=== PATIENT | female | born 1945 | race Caucasian/White ===

== ENCOUNTER 2018-06-23 10:11 | Inpatient (IN) | payer OTHER ==
--- OUTSIDE RECORDS SUMMARY | 2018-06-23 10:16 | XMS REPORT ---
:1945 [facility] Address [address] [place] [address] Dr. Ram[address]rez [address] [place] [address] Care Team Providers Name Role Phone Unavailable Unavailable Unavailable Problems This patient has no known problems. Allergies, Adverse Reactions, Alerts This patient has no known allergies or adverse reactions. Medications This patient has no known medications.
[2018-06-23] MEDS ORDERED: FENTANYL CITR 100 MCG/2 ML ONE ×2 (10:37→13:12)
[2018-06-23 11:20] LABS: Absolute Lymphocytes (CBC) 1.7 K/uL (0.7-4.9); Absolute Monocytes 0.4 K/uL (0.1-1.3); Absolute Neutrophil 3.1 K/uL (1.8-8.0); Basophils % 0.3 % (0-1.3); Eosinophils % 1.2 % (0-4.4); Hematocrit 41.6 % (36.0-45.0); Lymphocytes % 33.2 % (15.3-44.8); MPV 8.9 fL (7.6-11.3); Monocytes % 6.8 % (3.3-12.3); RBC Red Blood Cell Count 4.49 M/uL (3.86-4.86)
[2018-06-23 11:42] LABS: BUN Blood Urea Nitrogen 16 mg/dL (7-18); Bicarbonate 26 mmol/L (21-32); Creatine Phosphokinase 56 U/L (26-192); Glucose Level 211 mg/dL (74-106); Potassium 3.7 mmol/L (3.5-5.1); Sodium Level 139 mmol/L (136-145); Troponin (Emerg Dept Use Only) < 0.02 ng/mL (0.0-0.045)
--- NOTE | 2018-06-23 11:47 | EKG ---
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
--- NOTE | 2018-06-23 11:50 | RAD REPORT ---
EXAM DESCRIPTION: [place] Single View06/23/2018 11:42 am CLINICAL HISTORY: Chest pain COMPARISON: 2009 FINDINGS: The lungs appear clear of acute infiltrate. The heart is normal size IMPRESSION: No acute abnormalities displayed
--- NOTE | 2018-06-23 11:53 | RAD REPORT ---
EXAM DESCRIPTION: RAD - Pelvis - 06/23/2018 11:42 am CLINICAL HISTORY: Pelvic pain status post injury FINDINGS: Subcapital right femoral fracture. Marked displacement of fracture fragments and angulatio n present at the fracture site. No dislocation
--- NOTE | 2018-06-23 11:53 | RAD REPORT ---
EXAM DESCRIPTION: RAD - Hip Right 2 View - 06/23/2018 11:42 am CLINICAL HISTORY: Right hip pain FINDINGS: Subcapital right femoral fracture. Marked displacement of fracture fragments and angulatio n present at the fracture site. No dislocation
[2018-06-23] MEDS ORDERED: DIAZEPAM 10 MG/2 ML INJ SYRINGE ONE ×2 (11:56→11:57)
--- NOTE | 2018-06-23 12:09 | EDPHYS ---
Physician Documentation [facility] Name: Anjel Stapleton Age: 72 yrs Sex: Female : 1945 Arrival Date: 06/23/2018 Time: 10:12 Bed 23 Private MD: ED Physician Aldair Vargas HPI: 06/23 10:33 This 72 yrs old Female presents to ER via EMS with complaints of Fall Injury, snw Hip Pain. 10:33 Details of fall: The patient fell from an upright position, while standing. Onset: The snw symptoms/episode began/occurred suddenly, just prior to arrival. Associated injuries: The patient sustained right hip, decreased range of motion, painful injury. Severity of symptoms: At their worst the symptoms were severe. The patient has not experienced similar symptoms in the past. It is unknown whether or not the patient has recently seen a physician, See Dr. Santos. pt fell over parking lot curb and landed on right hip. no loc. Historical: - Allergies: 10:20 PENICILLINS; aj - PSHx: 10:20 ; Appendectomy; aj - Immunization history: Last tetanus immunization: unknown. - Social history:: Smoking status: Patient/guardian denies using tobacco. - Ebola Screening: : Patient negative for fever greater than or equal to 101.5 degrees Fahrenheit, and additional compatible Ebola Virus Disease symptoms Patient denies exposure to infectious person Patient denies travel to an Ebola-affected area in the 21 days before illness onset No symptoms or risks identified at this time. ROS: 10:31 Constitutional: Negative for fever, chills, and weight loss, Eyes: Negative for injury, snw pain, redness, and discharge, ENT: Negative for injury, pain, and discharge, Neck: Negative for injury, pain, and swelling, Cardiovascular: Negative for chest pain, palpitations, and edema, Respiratory: Negative for shortness of breath, cough, wheezing, and pleuritic chest pain, Abdomen/GI: Negative for abdominal pain, nausea, vomiting, diarrhea, and constipation, Back: Negative for injury and pain, : Negative for injury, bleeding, discharge, and swelling, Neuro: Negative for headache, weakness, numbness, tingling, and seizure. 10:31 MS/extremity: Positive for injury or acute deformity, decreased range of motion, pain, tenderness, of the right hip. 10:31 Skin: Positive for poison gemini. Exam: 10:28 Constitutional: This is a well developed, well nourished patient who is awake, alert, snw and in no acute distress. Head/Face: Normocephalic, atraumatic. Eyes: Pupils equal round and reactive to light, extra-ocular motions intact. Lids and lashes normal. Conjunctiva and sclera are non-icteric and not injected. Cornea within normal limits. Periorbital areas with no swelling, redness, or edema. ENT: Nares patent. No nasal discharge, no septal abnormalities noted. Tympanic membranes are normal and external auditory canals are clear. Oropharynx with no redness, swelling, or masses, exudates, or evidence of obstruction, uvula midline. Mucous membranes moist. Neck: Trachea midline, no thyromegaly or masses palpated, and no cervical lymphadenopathy. Supple, full range of motion without nuchal rigidity, or vertebral point tenderness. No Meningismus. Chest/axilla: Normal chest wall appearance and motion. Nontender with no deformity. No lesions are appreciated. Cardiovascular: Regular rate and rhythm with a normal S1 and S2. No gallops, murmurs, or rubs. Normal PMI, no JVD. No pulse deficits. Respiratory: Lungs have equal breath sounds bilaterally, clear to auscultation and percussion. No rales, rhonchi or wheezes noted. No increased work of breathing, no retractions or nasal flaring. Abdomen/GI: Soft, non-tender, with normal bowel sounds. No distension or tympany. No guarding or rebound. No evidence of tenderness throughout. Back: No spinal tenderness. No costovertebral tenderness. Full range of motion. Neuro: Awake and alert, GCS 15, oriented to person, place, time, and situation. Cranial nerves II-XII grossly intact. Motor strength 5/5 in all extremities. Sensory grossly intact. Cerebellar exam normal. Normal gait. Psych: Awake, alert, with orientation to person, place and time. Behavior, mood, and affect are within normal limits. 10:28 Musculoskeletal/extremity: Extremities: grossly normal except: noted in the right hip: decreased ROM, deformity, pain, ROM: limited active range of motion due to pain, in the right hip, Circulation is intact in all extremities. the right hip Severe pain noted. 10:32 Skin: Appearance: Color: normal in color, consistent with contact dermatitis, to snw forehead, mild abrasion to right knee. 10:35 ECG was reviewed by the Attending Physician. snw Vital Signs: 10:13 BP 149 / 85; Pulse 84; Resp 18; Temp 98.4; Pulse Ox 97% on R/A; Weight 58.51 kg; Height aj 5 ft. 2 in. (157.48 cm); 11:12 BP 111 / 63; Pulse 79; Resp 16; Pulse Ox 99% on R/A; aj 12:31 BP 105 / 63; Pulse 81; Resp 16; Temp 98.4; Pulse Ox 95% on R/A; aj 13:56 BP 124 / 73; Pulse 80; Resp 20; Temp 98.0; Pulse Ox 95% ; lt1 10:13 Body Mass Index 23.59 (58.51 kg, 157.48 cm) aj Odalys Coma Score: 10:13 Eye Response: spontaneous(4). Verbal Response: oriented(5). Motor Response: obeys aj commands(6). Total: 15. Trauma Score (Adult): 10:13 Eye Response: spontaneous(1); Verbal Response: oriented(1); Motor Response: obeys aj commands(2); Systolic BP: > 89 mm Hg(4); Respiratory Rate: 10 to 29 per min(4); Odalys Score: 15; Trauma Score: 12 MDM: 10:28 Patient medically screened. snw 12:08 Data reviewed: vital signs, nurses notes. Data interpreted: Pulse oximetry: on room air snw is 97 %. Interpretation: normal. Counseling: I had a detailed discussion with the patient and/or guardian regarding: the historical points, exam findings, and any diagnostic results supporting the discharge/admit diagnosis, lab results, radiology results, the need for further work-up and treatment in the hospital. Physician consultation: Robin Edwards DO was called at 12:00, was contacted at 12:00, regarding admission, to the telemetry unit. would like consultation with Dr. Dr Adams. 12:10 Physician consultation: Joe Adams MD was called at 12:10, was contacted at 12:10, snw regarding consult, patient's condition. 06/23 10:37 Order name: CBC with Diff; Complete Time: 11:24 snw 06/23 10:37 Order name: Chem 7; Complete Time: 11:45 snw 06/23 10:37 Order name: Troponin (emerg Dept Use Only); Complete Time: 11:45 snw 06/23 10:37 Order name: CPK; Complete Time: 11:45 snw 06/23 10:37 Order name: Ptt, Activated; Complete Time: 12:47 snw 06/23 10:37 Order name: PT-INR; Complete Time: 12:47 snw 06/23 10:22 Order name: XRAY Pelvis; Complete Time: 11:55 aj 06/23 10:22 Order name: XRAY Hip RIGHT 2 view; Complete Time: 11:55 06/23 10:37 Order name: EKG; Complete Time: 10:38 snw 06/23 11:17 Order name: Chest Single View; Complete Time: 11:55 EDMS 06/23 10:23 Order name: IV Saline Lock; Complete Time: 10:36 06/23 10:37 Order name: EKG - Nurse/Tech; Complete Time: 10:51 snw 06/23 11:32 Order name: Misc. Order: traction splint to right lower ext; Complete Time: 12:07 snw 06/23 12:11 Order name: Mccloud; Complete Time: 12:15 snw Administered Medications: 10:30 Drug: fentaNYL (PF) 25 mcg Route: IVP; Site: right antecubital; aj 13:01 Follow up: Response: Pain is decreased aj 10:52 Drug: fentaNYL (PF) 25 mcg Route: IVP; Site: right antecubital; aj 13:01 Follow up: Response: Pain is decreased aj 11:40 Drug: Valium 5 mg Route: IVP; Site: right antecubital; aj 13:01 Follow up: Response: Pain is decreased aj 13:00 Drug: fentaNYL (PF) 25 mcg Route: IVP; Site: right antecubital; aj Disposition: 21:01 Co-signature as Attending Physician, Aldair Vargas MD Available for consultation at ps1 all times. Disposition: 06/23/18 12:08 Hospitalization ordered by Robin Edwards for Inpatient Admission. Preliminary diagnosis are Fall on same level, unspecified, Closed right subcapital fracture. - Bed requested for Telemetry/MedSurg (Inpatient). - Status is Inpatient Admission. aj - Condition is Stable. - Problem is new. - Symptoms are unchanged. UTI on Admission? No Signatures: Dispatcher [employer] EDSharlene Melvin RN RN dw Myers, Amanda, RN RN aj Therrien, Shelly, FORWARD AIR CONTROLLER/AIR OFFICER-C FORWARD AIR CONTROLLER/AIR OFFICER-Csnw Aldair Vargas MD MD ps1 Corrections: (The following items were deleted from the chart) 10:33 10:28 Constitutional: This is a well developed, well nourished patient who is awake, snw alert, and in no acute distress. Head/Face: Normocephalic, atraumatic. Eyes: Pupils equal round and reactive to light, extra-ocular motions intact. Lids and lashes normal. Conjunctiva and sclera are non-icteric and not injected. Cornea within normal limits. Periorbital areas with no swelling, redness, or edema. ENT: Nares patent. No nasal discharge, no septal abnormalities noted. Tympanic membranes are normal and external auditory canals are clear. Oropharynx with no redness, swelling, or masses, exudates, or evidence of obstruction, uvula midline. Mucous membranes moist. Neck: Trachea midline, no thyromegaly or masses palpated, and no cervical lymphadenopathy. Supple, full range of motion without nuchal rigidity, or vertebral point tenderness. No Meningismus. Chest/axilla: Normal chest wall appearance and motion. Nontender with no deformity. No lesions are appreciated. Cardiovascular: Regular rate and rhythm with a normal S1 and S2. No gallops, murmurs, or rubs. Normal PMI, no JVD. No pulse deficits. Respiratory: Lungs have equal breath sounds bilaterally, clear to auscultation and percussion. No rales, rhonchi or wheezes noted. No increased work of breathing, no retractions or nasal flaring. Abdomen/GI: Soft, non-tender, with normal bowel sounds. No distension or tympany. No guarding or rebound. No evidence of tenderness throughout. Back: No spinal tenderness. No costovertebral tenderness. Full range of motion. Neuro: Awake and alert, GCS 15, oriented to person, place, time, and situation. Cranial nerves II-XII grossly intact. Motor strength 5/5 in all extremities. Sensory grossly intact. Cerebellar exam normal. Normal gait. Psych: Awake, alert, with orientation to person, place and time. Behavior, mood, and affect are within normal limits. snw 13:50 12:08 Hospitalization Ordered by Robin Edwards DO for Inpatient Admission. Preliminary dw diagnosis is Fall on same level, unspecified; Closed right subcapital fracture. Bed requested for Telemetry/MedSurg (Inpatient). Status is Inpatient Admission. Condition is Stable. Problem is new. Symptoms are unchanged. UTI on Admission? No. snw 14:40 13:50 06/23/2018 12:08 Hospitalization Ordered by Robin Edwards DO for Inpatient aj Admission. Preliminary diagnosis is Fall on same level, unspecified; Closed right subcapital fracture. Bed requested for Telemetry/MedSurg (Inpatient). Status is Inpatient Admission. Condition is Stable. Problem is new. Symptoms are unchanged. UTI on Admission? No. dw
--- NOTE | 2018-06-23 12:09 | ER ---
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 aj Patient reports she is unable to straighten her leg. Mechanism of Injury: Fall from standing position. Trauma event details: Injury occurred in the [facility], Injury occurred: at home. Injury occurred: June 23, 2018 Injury occurred at: 09:45. 10:13 Acuity: ELENI 2 aj 10:13 Method Of Arrival: EMS: [facility] 10:36 Transition of care: patient was not received from another setting of care. Onset of aj symptoms was June 23, 2018. Risk Assessment: Do you want to hurt yourself or someone else? Patient reports no desire to harm self or others. Initial Sepsis Screen: Does the patient meet any 2 criteria? No. Patient's initial sepsis screen is negative. Does the patient have a suspected source of infection? No. Patient's initial sepsis screen is negative. Care prior to arrival: Medication(s) given: Tylenol, 1000 mg. Trauma Activation: Alert Physician: ED Physician; Name: ; Notified At: ; Arrived At: Physician: General Surgeon; Name: ; Notified At: ; Arrived At: Physician: Radiology; Name: ; Notified At: ; Arrived At: Physician: Respiratory; Name: ; Notified At: ; Arrived At: Physician: Lab; Name: ; Notified At: ; Arrived At: Historical: - Allergies: 10:20 PENICILLINS; aj - PSHx: 10:20 ; Appendectomy; aj - Immunization history: Last tetanus immunization: unknown. - Social history:: Smoking status: Patient/guardian denies using tobacco. - Ebola Screening: : Patient negative for fever greater than or equal to 101.5 degrees Fahrenheit, and additional compatible Ebola Virus Disease symptoms Patient denies exposure to infectious person Patient denies travel to an Ebola-affected area in the 21 days before illness onset No symptoms or risks identified at this time. Screenin:13 Abuse screen: Denies threats or abuse. Denies injuries from another. Tuberculosis aj screening: No symptoms or risk factors identified. Primary Survey: 10:13 NO uncontrolled hemorrhage observed. Breathing/Chest: Respiratory pattern: regular, aj Respiratory effort: spontaneous, unlabored, Breath sounds: clear, Chest inspection: symmetrical rise and fall of the chest. Circulation: Skin color: pink, Skin temperature: warm, dry. Disability Alert. Assessment: 10:13 General: Appears in no apparent distress. uncomfortable, Behavior is calm, cooperative, aj appropriate for age. Pain: Complains of pain in right hip. Neuro: Level of Consciousness is awake, alert, obeys commands, Oriented to person, place, time, situation, Appropriate for age. Respiratory: Airway is patent Respiratory effort is even, unlabored, Respiratory pattern is regular, symmetrical. Derm: Skin is intact, is healthy with good turgor, Skin is pink, warm \T\ dry. normal. Musculoskeletal: Range of motion: limited in right hip. Vital Signs: 10:13 BP 149 / 85; Pulse 84; Resp 18; Temp 98.4; Pulse Ox 97% on R/A; Weight 58.51 kg; Height aj 5 ft. 2 in. (157.48 cm); 11:12 BP 111 / 63; Pulse 79; Resp 16; Pulse Ox 99% on R/A; aj 12:31 BP 105 / 63; Pulse 81; Resp 16; Temp 98.4; Pulse Ox 95% on R/A; aj 13:56 BP 124 / 73; Pulse 80; Resp 20; Temp 98.0; Pulse Ox 95% ; lt1 10:13 Body Mass Index 23.59 (58.51 kg, 157.48 cm) aj Odalys Coma Score: 10:13 Eye Response: spontaneous(4). Verbal Response: oriented(5). Motor Response: obeys aj commands(6). Total: 15. Trauma Score (Adult): 10:13 Eye Response: spontaneous(1); Verbal Response: oriented(1); Motor Response: obeys aj commands(2); Systolic BP: > 89 mm Hg(4); Respiratory Rate: 10 to 29 per min(4); Odalys Score: 15; Trauma Score: 12 ED Course: 10:12 Patient arrived in ED. aj 10:13 Patient has correct armband on for positive identification. aj 10:13 Patient maintains SpO2 saturation greater than 95% on room air. aj 10:16 Triage completed. aj 10:18 Aldair Vargas MD is Attending Physician. ps1 10:20 Arm band placed on right wrist. Patient placed in an exam room. aj 10:27 Brenda Voss, ALVAROC [facility]. snw 10:35 Debbie Krishnamurthy, RN is Primary Nurse. aj 10:36 Inserted saline lock: 20 gauge in right antecubital area, using aseptic technique. aj Blood collected. 10:52 EKG done, by mechanical engineering technician. reviewed by Brenda BROWN. at1 11:42 XRAY Pelvis In Process Unspecified. EDMS 11:43 XRAY Hip RIGHT 2 view In Process Unspecified. EDMS 11:43 Chest Single View In Process Unspecified. EDMS 11:50 X-ray completed. Patient tolerated procedure well. mh1 11:53 Traction splint applied by Tori Hebert RN and checked by Brenda Voss. aj 12:06 Robin Edwards DO is Hospitalizing Provider. snw 12:09 Mccloud cath inserted, using sterile technique, [address], balloon inflated, to aj gravity drainage, urine specimen collected. returned clear yellow urine. Patient tolerated well. 14:13 No provider procedures requiring assistance completed. Patient admitted, IV remains in aj place. intact. Administered Medications: 10:30 Drug: fentaNYL (PF) 25 mcg Route: IVP; Site: right antecubital; aj 13:01 Follow up: Response: Pain is decreased aj 10:52 Drug: fentaNYL (PF) 25 mcg Route: IVP; Site: right antecubital; aj 13:01 Follow up: Response: Pain is decreased aj 11:40 Drug: Valium 5 mg Route: IVP; Site: right antecubital; aj 13:01 Follow up: Response: Pain is decreased aj 13:00 Drug: fentaNYL (PF) 25 mcg Route: IVP; Site: right antecubital; aj Outcome: 12:08 Decision to Hospitalize by Provider. snw 14:13 Admitted to Med/surg accompanied by tech, family with patient, via stretcher, room 215, aj with chart, Report called to Marizol 14:40 Patient left the ED. aj Signatures: Dispatcher [employer] EDDebbie Walker RN RN Brenda Wilson, POLYSOMNOGRAPHIC TECH-C POLYSOMNOGRAPHIC TECH-Csnw Doreen Guerrero mh1 Debbie Ureña, prosthetic makeup designer EKG Tat1 Aldair Vargas MD MD ps1 Radha Marino lt1 Corrections: (The following items were deleted from the chart) 10:37 10:13 Care prior to arrival: None. jer randle
[2018-06-23 12:31] LABS: Protime INR 0.99
--- NOTE | 2018-06-23 12:50 | P.HP ---
Certification for Inpatient Patient admitted to: Inpatient With expected LOS: >2 Midnights Patient will require the following post-hospital care: Other (Home health/ physical therapy versus inpatient rehab) Practitioner: I am a practitioner with admitting privileges, knowledge of patient current condition, hospital course, and medical plan of care. Services: Services provided to patient in accordance with Admission requirements found in Title 42 Section 412.3 of the Code of Federal Regulations Patient History Date of Service: 06/23/18 Primary Care Provider: Dr. Santos Reason for admission: Fall History of Present Illness: 72-year-old female presented to the emergency room after a mechanical fall. Patient was in a parking lot. She apparently tripped on a curb stop. Patient denied any fever, chills, shortness of breath, chest pain. Patient had immediate pain to the right side. Patient was brought in to the ER for further evaluation. Patient was evaluated the emergency room. CBC and BMP unremarkable. X-ray showed right subcapital femur fracture. Patient was stabilized in the emergency room. She was admitted for further evaluation and treatment. When I saw the patient ER, she appeared comfortable. Patient reports no prior medical problems. She was recently evaluated for pre diabetes. Recent A1c, reported as normal. Patient has been depressed. She is not taking any medication. Patient reports some problems with balance related to her severe bunions bilaterally. Allergies PENICILLINS Allergy (Uncoded 03/23/15 00:00) Unknown Home medications list reviewed: Yes - Past Medical/Surgical History Diabetic: No -: Pre diabetes -: Bunions -: Hysterectomy -: Bowel surgery related to bowel obstruction Psychosocial/ Personal History: Patient is . Patient has children. Patient has safe environment at home. - Family History Family History: Reviewed- Non-Contributory - Social History Smoking Status: Never smoker Alcohol use: No CD- Drugs: No Caffeine use: No Place of Residence: Home Review of Systems General: As per HPI Eyes: Unremarkable ENT: As per HPI (Some nasal congestion noted. Recently treated for sinus infection) Respiratory: Unremarkable Cardiovascular: Unremarkable Gastrointestinal: Unremarkable Genitourinary: Unremarkable Musculoskeletal: Leg Pain, As per HPI Integumentary: Unremarkable Neurological: Unremarkable Lymphatics: Unremarkable Physical Examination - Physical Exam General: Alert, In no apparent distress, Oriented x3, Cooperative HEENT: Atraumatic, Normocephalic, PERRLA, Mucous membr. moist/pink Neck: Supple, No Thyromegaly Respiratory: Clear to auscultation bilaterally, Normal air movement Cardiovascular: Normal pulses, Regular rate/rhythm Gastrointestinal: Normal bowel sounds, Soft and benign, Non-distended, No tenderness, No masses, No rebound, No guarding Musculoskeletal: Other (Right leg in traction. Patient with severe bunions bilaterally. Some hammertoes noted.) Integumentary: No erythema, No warmth, No cyanosis Neurological: Normal speech, Normal strength at 5/5 x4 extr, Normal tone, Normal affect - Studies Laboratory Data (last 24 hrs) 06/23/18 12:12: PT 11.7, INR 0.99, APTT 30.6 06/23/18 10:30: Sodium 139, Potassium 3.7, BUN 16, Creatinine 0.72, Glucose 211 H 06/23/18 10:30: WBC 5.2, Hgb 14.3, Hct 41.6, Plt Count 186 Assessment and Plan - Plan Impression: Mechanical fall leading to right subcapital femur fracture Bunions, bilateral with hammertoes Pre diabetes Chronic allergic rhinitis Plan: Mechanical fall leading to right subcapital femur fracture: Patient will be admitted for treatment. Case discussed with orthopedics. Surgery will be planned for tomorrow as the patient ate this morning. Provide medication for pain. Will continue with DVT prophylaxis. Patient is low risk for complication. Patient would be a good candidate for home health and physical therapy verses inpatient rehab at discharge. Patient does plan to go to [place] in the next week as her son will take care of her post surgery. Bunions, bilateral with hammertoes: Patient will need outpatient follow up with podiatry to further address and treat Pre diabetes: Patient reports having recent A1c normal. Chronic allergic rhinitis: Will provide medication Zyrtec and Flonase. Discharge Plan: Other (Home with home health/physical therapy verses inpatient rehab) Plan to discharge in: 72 Hours - Advance Directives Does patient have a Living Will: No Does patient have a Durable POA for Healthcare: No - Code Status/Comfort Care Code Status Assessed: Yes (Patient is full code.) Time Spent Managing Pts Care (In Minutes): 55
[2018-06-23] MEDS ORDERED: ONDANSETRON 4 MG/2 ML VIAL IV PRN (14:52)
[2018-06-23] MEDS ORDERED: ACETAMINOPHEN 500 MG TAB PO PRN (14:52)
[2018-06-23 15:36] LABS: Thyroid Stimulating Hormone 2.19 uIU/mL (0.360-3.740)
[2018-06-23] MEDS ORDERED: PNEUMOCOCCAL VACCINE 0.5 ML IMVAC ONE (16:00)
[2018-06-23] MEDS: TRAMADOL HCL 50 MG TAB PO PRN (16:05)
[2018-06-23] MEDS: ENOXAPARIN 40 MG/0.4 ML SQ SCH (17:52)
[2018-06-23] MEDS: FLUTICASONE 50MCG NASAL SPRAY NAS SCH (20:45)
[2018-06-23] MEDS: HYDROCODONE/APAP 5/325 MG TAB PO PRN (20:58)
[2018-06-23] MEDS ORDERED: METHOCARBAMOL 500 MG TAB PO PRN (21:38)
--- NOTE | 2018-06-23 21:46 | CON ---
Date of Consultation: 06/23/2018 Reason For Consultation: Right hip pain. History Of Present Illness: Anjel is a 72-year-old female who presented to the ER today after sustai joel a fall after getting out of her car. She states she fell onto her right side onto a curb with s ubsequent pain, deformity to the right hip, and inability to bear weight. [facility], had x-rays which demonstrated displaced right femoral neck fracture. The hospitalist se abbott admitted the patient, and I was consulted for further evaluation. The patient denies any probl ems with the right hip prior to her injury. She did not use any assistive device prior to the fall. Review of Systems: As above, otherwise negative. Past Medical History: None. Past Surgical History: None. Medications: Per medication reconciliation. Allergies: PENICILLIN. Social History: Denies tobacco, alcohol, or drug use. Physical Examination: General: In no apparent distress. HEENT: Normocephalic, atraumatic. Neck: Supple. Cardiovascular: Brisk cap refill to all digits. Chest: Nonlabored breathing. Abdomen: Nondistended. Psychiatric: Responsive to exam. Musculoskeletal: Left lower extremity, functional range of motion without pain. No gross deformity. No obvious dislocations. Bilateral upper extremities, functional range of motion without pain. No gross deformities. No obvious dislocations. Right lower extremity, tenderness to palpation of the right hip, pain with range of motion of the right hip. No tenderness to palpation over the right kne e, tibia, and ankle. Sensation grossly intact to the dorsal and plantar surfaces of the right foot. Positive dorsalis pedis pulse. X-rays: X-rays of the right hip demonstrated a displaced transcervical right femoral neck fracture w ith displacement. Assessment And Plan: Anjel is a 72-year-old female with a right displaced femoral neck fracture. I discussed with the patient and her family at length risks and benefits associated with operative and nonoperative treatment. They expressed understanding and elected to proceed with operative treatment including right hip hemiarthroplasty. I discussed with the patient and her family, risks including pain, bleeding, infection, damage to neurovascular structures, as well as leg length discrepancy, and dislocation. They expressed understanding. We will proceed with operative treatment tomorrow. She will be n.p.o. after midnight. CV/MODL Voice ID: [id number] Report ID: [id number]
[2018-06-23 23:10] LABS: Urine Appearance CLOUDY; Urine Bilirubin NEGATIVE (NEG); Urine Blood 3+ (NEG); Urine Color YELLOW; Urine Glucose NEGATIVE (NEG); Urine Protein 1+ (NEG); Urine Specific Gravity 1.025 (1.005-1.030); Urine Urobilinogen 0.2 mg/dL (0.2-1.0); Urine pH 5.5 (5.0-7.0)
[2018-06-23 23:30] LABS: Urine Microscopic Reflex ORDER UMIC
[2018-06-23 23:43] LABS: Urine Bacteria <20 /HPF (<20); Urine Culture Reflex Order REFLEXED; Urine RBC 20-50 /HPF (NONE SEEN)
[2018-06-24] MEDS: MORPHINE 2 MG/ML SYR IV PRN ×2 (03:25→08:53)
[2018-06-24 05:34] LABS: Absolute Lymphocytes (CBC) 2.2 K/uL (0.7-4.9); Absolute Monocytes 0.7 K/uL (0.1-1.3); Basophils % 0.4 % (0-1.3); Eosinophils % 0.7 % (0-4.4); Hematocrit 42.1 % (36.0-45.0); Lymphocytes % 27.2 % (15.3-44.8); MPV 8.3 fL (7.6-11.3); Monocytes % 9.2 % (3.3-12.3); RBC Red Blood Cell Count 4.53 M/uL (3.86-4.86)
[2018-06-24 05:50] LABS: BUN Blood Urea Nitrogen 11 mg/dL (7-18); Bicarbonate 30 mmol/L (21-32); Glucose Level 134 mg/dL (74-106); Magnesium 2.1 mg/dL (1.8-2.4); Potassium 4.3 mmol/L (3.5-5.1); Sodium Level 141 mmol/L (136-145)
[2018-06-24] MEDS: CETIRIZINE HCL 5 MG TABLET PO SCH (08:55)
[2018-06-24] MEDS: ENOXAPARIN 40 MG/0.4 ML SQ SCH (08:55)
[2018-06-24] MEDS: FLUTICASONE 50MCG NASAL SPRAY NAS SCH ×2 (09:00→20:48)
[2018-06-24] MEDS ORDERED: Ringers Lactate 1,000 ML IV ONE (10:05)
[2018-06-24] MEDS ORDERED: CLINDAMYCIN INJ 600 MG in NA CHLORIDE 0.9% 50 ML IV ONE (10:30)
[2018-06-24] MEDS ORDERED: PROPOFOL 200 MG/20 ML VIAL IV ONE (10:57)
[2018-06-24] MEDS ORDERED: ROCURONIUM 50 MG/5 ML VIAL IV ONE (10:58)
[2018-06-24] MEDS ORDERED: LIDOCAINE 2% MPF 5 ML VIAL ONE (10:58)
[2018-06-24] MEDS ORDERED: FENTANYL CITR 250 MCG/5 ML ONE (10:58)
[2018-06-24] MEDS ORDERED: EPHEDRINE SULF 50 MG/ML VIAL ONE (11:52)
--- NOTE | 2018-06-24 12:17 | P.PN ---
Subjective Date of Service: 06/24/18 Primary Care Provider: Dr. Santos Chief Complaint: Fall Subjective: Doing well (Patient doing well. Patient NPO for surgery.) Physical Examination - Vital Signs Temperature: 98.0 F Blood Pressure: 130/73 Pulse: 65 Respirations: 16 Pulse Ox (%): 92 - Physical Exam General: Alert, In no apparent distress, Oriented x3, Cooperative HEENT: Atraumatic Neck: Supple Respiratory: Clear to auscultation bilaterally, Normal air movement Cardiovascular: Normal pulses, Regular rate/rhythm Gastrointestinal: Normal bowel sounds, Soft and benign, Non-distended Neurological: Normal affect - Studies Laboratory Data (last 24 hrs) 06/23/18 12:12: PT 11.7, INR 0.99, APTT 30.6 Medications List Reviewed: Yes Assessment & Plan Discharge Plan: Home Plan to discharge in: 72 Hours Physician Review Additional Text: Impression: Mechanical fall leading to right subcapital femur fracture Bunions, bilateral with hammertoes Pre diabetes Chronic allergic rhinitis Plan: Mechanical fall leading to right subcapital femur fracture: Patient stable this time. Patient NPO for surgery today. Case discussed with orthopedics yesterday. Patient would be a good candidate for home health and physical therapy verses inpatient rehab at discharge. Patient does plan to go to [place] in the next week as her son will take care of her post surgery. Await to see how she does after surgery. Bunions, bilateral with hammertoes: Patient will need outpatient follow up with podiatry to further address and treat Pre diabetes: Patient reports having recent A1c normal. Will monitor closely. Chronic allergic rhinitis: Continue with Zyrtec and Flonase. Time Spent Managing Pts Care (In Minutes): 55
[2018-06-24] MEDS ORDERED: DEXAMETHASONE 10 MG/ML VIAL ONE (12:59)
[2018-06-24] MEDS ORDERED: KETOROLAC 30 MG/ML INJ ONE (12:59)
[2018-06-24] MEDS ORDERED: TRANEXAMIC ACID 1,000 MG in NA CHLORIDE 0.9% 50 ML IV ONE (13:00)
[2018-06-24] MEDS ORDERED: GLYCOPYRROLATE 0.2 MG/ML SYR ONE (13:41)
--- NOTE | 2018-06-24 14:10 | P.BOP ---
Preoperative diagnosis: right femoral neck fracture Postoperative diagnosis: same Primary procedure: right hip hemiarthroplasty Lion Tamer: NONE,NONE Estimated blood loss: 200 cc Specimen: right femoral head Findings: see dictation Anesthesia: General Complications: None Implants: Size 9 Biomet press fit stem, 41 mm bipolar shell, 28mm x - 6 head Fluids & blood products: per anesthesia record Transferred to: Recovery Room Condition: Good
[2018-06-24] MEDS ORDERED: MORPHINE 2 MG/ML SYR IV PRN (14:25)
[2018-06-24] MEDS ORDERED: DOCUSATE NA 100 MG CAP PO PRN (14:25)
--- NOTE | 2018-06-24 15:01 | RAD REPORT ---
EXAM DESCRIPTION: RAD - Pelvis - 06/24/2018 2:52 pm CLINICAL HISTORY: Right hip surgery FINDINGS: Right hip arthroplasty. The prosthesis is in good position. No fracture or dislocation
--- NOTE | 2018-06-24 15:02 | RAD REPORT ---
EXAM DESCRIPTION: RAD - Hip Right 2 View - 06/24/2018 2:52 pm CLINICAL HISTORY: Right hip surgery FINDINGS: Right hip arthroplasty. The prosthesis is in good position. No fracture or dislocation
[2018-06-24] MEDS: CLINDAMYCIN INJ 600 MG in NA CHLORIDE 0.9% 50 ML IV SCH (17:16)
[2018-06-24] MEDS: HYDROCODONE/APAP 5/325 MG TAB PO PRN (20:45)
[2018-06-25] MEDS: CLINDAMYCIN INJ 600 MG in NA CHLORIDE 0.9% 50 ML IV SCH ×2 (01:30→09:20)
--- NOTE | 2018-06-25 02:09 | OP ---
Date of Procedure: 06/24/2018 Surgeon: Joe Adams MD Preoperative Diagnosis: Right femoral neck fracture. Postoperative Diagnosis: Right femoral neck fracture. Procedure Performed: Right hip hemiarthroplasty. Anesthesia: General endotracheal. Fluids: Per Anesthesia record. Ebl: 200 cc. Implant: A Biomet size 9, press-fit 10, a 41 mm bipolar shell, and a 28 x -6 head. Complications: None. Indication For Procedure: Anjel is a 72-year-old female, who presented to the ER yesterday after sustaining a fall onto her right side with subsequent pain and inability to bear weight. She was brought to the emergency room and had x- rays, which demonstrated a right displaced femoral neck fracture. Discussed with the patient and her family at length risks and benefits associated with operative and nonoperative treatment. She expressed understanding and elected to proceed with operative treatment. Description Of Procedure: After informed consent was obtained, the patient was identified in the preoperative holding. The right lower extremity was marked. The patient was then brought back to the operating room, transferred to the operative table in supine fashion and placed under general endotracheal anesthesia. She was then placed in the left lateral decubitus position with an axillary roll placed and her extremities well padded. The right lower extremity was then prepped and draped in usual sterile fashion. A time-out was initiated. The correct patient and procedure were confirmed and identified. The patient did receive her preoperative prophylactic antibiotics. She also received tranexamic acid during the surgery. Approximately a 15 cm curvilinear incision was made centered over the greater trochanter with posterior approach to the hip. Dissection was taken down to the tensor fascia niurka, which was split and divided proximally and distally. A Charnley retractor was then put in place. Blunt dissection was then taken down to the proximal femur and here the short external rotators were identified, piriformis was tagged with #5 Ethibond. A T-shaped capsulotomy was then performed. The capsule was then tagged with a #5 Ethibond. Fractured hematoma was evacuated. A corkscrew was then placed within the femoral head and the femoral head was removed from the acetabulum and measured. Size 41 shell was then selected. A 41 mm bipolar shell trial was then placed and there was good overall fit within acetabulum that was then removed. proximal femur. First a Cookie cutter was placed to prepare the proximal femur. When this was placed, a canal finder was then placed down the femoral shaft in antegrade fashion followed by a lateralizer. The proximal femur was then reamed from size 7 mm reamer to a size 10 mm reamer. The hip was then broached from a size 7 mm broach to size 10 mm broach. It was then measured using a trial 40 mm shell and a -6 head. The leg length still appeared to be long on the right lower extremity. At that point, we went back to a 9 mm stem which was replaced in the femoral shaft. Planer was then used and a -6 mm head was then again placed. Hip was reduced and there was good overall leg length and stability. The trial implants were then removed and hip was then irrigated thoroughly with normal saline. Final implants were placed with a 9 mm porous-coated stem and a 41 mm shell with a 28 x -6 mm head. Hip was reduced. There was good overall leg length as well as good stability. The wound was then irrigated thoroughly with normal saline. The capsule was then approximated using a #5 Ethibond. The short external rotators were then tacked back to the greater trochanter using a drill and suture passer. External rotators were tagged over a bone bridge and the fascia was then approximated using 0 Vicryl and subcutaneous fascia was approximated using 0 Vicryl. Subcutaneous tissue was approximated using 2-0 Vicryl. Skin was approximated using wesly. Sterile dressings were applied. The patient was placed in an abduction pillow, awakened, and transferred to PACU in stable condition. Postoperative Plan: She will be weightbearing as tolerated. Posterior hip precautions will be followed Physical Therapy will be consulted and Hospitalist Service will continue to monitor the patient. JAKE/JAYCE Voice ID: [id number] Report ID: [id number] SILVINO
[2018-06-25 05:23] LABS: Absolute Lymphocytes (CBC) 0.7 K/uL (0.7-4.9); Absolute Monocytes 0.6 K/uL (0.1-1.3); Absolute Neutrophil 7.8 K/uL (1.8-8.0); Basophils % 0.2 % (0-1.3); Hematocrit 32.2 % (36.0-45.0); Lymphocytes % 7.8 % (15.3-44.8); MPV 8.8 fL (7.6-11.3); Monocytes % 6.1 % (3.3-12.3); RBC Red Blood Cell Count 3.52 M/uL (3.86-4.86)
[2018-06-25 05:36] LABS: BUN Blood Urea Nitrogen 11 mg/dL (7-18); Bicarbonate 25 mmol/L (21-32); Glucose Level 162 mg/dL (74-106); Magnesium 1.9 mg/dL (1.8-2.4); Potassium 3.9 mmol/L (3.5-5.1); Sodium Level 137 mmol/L (136-145)
[2018-06-25 06:30] LABS: Blood Morphology Comment NOT SEEN (NOT SEEN); Platelet Estimate ADEQ
[2018-06-25] MEDS: FLUTICASONE 50MCG NASAL SPRAY NAS SCH ×2 (09:00→20:48)
[2018-06-25] MEDS: ENOXAPARIN 40 MG/0.4 ML SQ SCH (09:19)
[2018-06-25] MEDS: CETIRIZINE HCL 5 MG TABLET PO SCH (09:19)
[2018-06-25] MEDS: TRAMADOL HCL 50 MG TAB PO PRN (10:35)
--- NOTE | 2018-06-25 14:02 | P.PN ---
Subjective Date of Service: 06/25/18 Primary Care Provider: Dr. Santos Chief Complaint: s/p right hip nikolai Subjective: Improving Pain controlled Physical Examination - Vital Signs Temperature: 98.7 F Blood Pressure: 105/55 Pulse: 84 Respirations: 16 Pulse Ox (%): 93 - Physical Exam General: Alert, In no apparent distress Musculoskeletal: Other (RLE: dressing c/d/i; +EHL/FHL/GSC/TA; sensation grossly intact distally) - Studies Medications List Reviewed: Yes Assessment And Plan - Plan Anjel is a 72 yo female s/p right hip hemiarthroplasty POD#1 -acute expected postoperative blood loss anemia; continue to monitor H/H -mobilize with PT; WBAT RLE with posterior hip precautions -lovenox for DVT prophylaxis -d/c ronit paiz Physician Review Additional Text: .
--- NOTE | 2018-06-25 14:08 | P.PN ---
Subjective Date of Service: 06/25/18 Primary Care Provider: Dr. Santos Chief Complaint: s/p right hip nikolai Subjective: Doing well Physical Examination - Vital Signs Temperature: 98.7 F Blood Pressure: 105/55 Pulse: 84 Respirations: 16 Pulse Ox (%): 93 - Physical Exam General: Alert, In no apparent distress, Oriented x3, Cooperative HEENT: Atraumatic Neck: Supple Respiratory: Clear to auscultation bilaterally, Normal air movement Cardiovascular: Normal pulses, Regular rate/rhythm Gastrointestinal: Normal bowel sounds, Soft and benign, Non-distended Neurological: Normal speech, Normal strength at 5/5 x4 extr, Normal tone, Normal affect - Studies Medications List Reviewed: Yes Assessment & Plan Discharge Plan: Other (Inpatient rehab) Plan to discharge in: 24 Hours Physician Review Additional Text: . Impression: Mechanical fall leading to right subcapital femur fracture status post right hip hemiarthroplasty Bunions, bilateral with hammertoes Pre diabetes Chronic allergic rhinitis Plan: Mechanical fall leading to right subcapital femur fracture status post right hip hemiarthroplasty: Patient has done well postoperatively. Continue DVT prophylaxis today. Will start physical therapy. Physical therapy recommends inpatient rehab. Patient will be a good candidate for inpatient rehab then transition to home with home health. Patient plans to go to [place] after this hospitalization or her son will take care of her post operatively. Likely discharge to inpatient rehab if approved tomorrow. Bunions, bilateral with hammertoes: Patient will need outpatient follow up with podiatry to further address and treat Pre diabetes: Patient reports having recent A1c normal. Will monitor closely. Chronic allergic rhinitis: Continue with Zyrtec and Flonase. Time Spent Managing Pts Care (In Minutes): 55
[2018-06-25] MEDS: HYDROCODONE/APAP 5/325 MG TAB PO PRN (20:47)
[2018-06-26 04:47] LABS: Absolute Lymphocytes (CBC) 2.1 K/uL (0.7-4.9); Absolute Monocytes 0.6 K/uL (0.1-1.3); Absolute Neutrophil 4.9 K/uL (1.8-8.0); Basophils % 0.2 % (0-1.3); Eosinophils % 1.7 % (0-4.4); Hematocrit 31.8 % (36.0-45.0); Lymphocytes % 27.1 % (15.3-44.8); MPV 8.8 fL (7.6-11.3); Monocytes % 7.8 % (3.3-12.3); RBC Red Blood Cell Count 3.44 M/uL (3.86-4.86)
[2018-06-26 04:56] LABS: BUN Blood Urea Nitrogen 13 mg/dL (7-18); Bicarbonate 26 mmol/L (21-32); Glucose Level 133 mg/dL (74-106); Magnesium 1.9 mg/dL (1.8-2.4); Potassium 3.3 mmol/L (3.5-5.1); Sodium Level 138 mmol/L (136-145)
--- NOTE | 2018-06-26 07:53 | P.PN ---
Subjective Date of Service: 06/26/18 Primary Care Provider: Dr. Santos Chief Complaint: s/p right hip nikolai Subjective: Ambulating, Working w/ PT Pain controlled; ambulated with PT yesterday Physical Examination - Vital Signs Temperature: 97.8 F Blood Pressure: 106/64 Pulse: 82 Respirations: 18 Pulse Ox (%): 99 - Physical Exam General: Alert, In no apparent distress Musculoskeletal: Other (RLE: dressing c/d/i; +EHL/FHL/GSC/TA; sensation grossly intact distally) - Studies Medications List Reviewed: Yes Assessment And Plan - Plan Anjel is a 72 yo female s/p right hip hemiarthroplasty POD#2 -acute expected postoperative blood loss anemia; H/h stabilizing -mobilize with PT; WBAT RLE with posterior hip precautions -lovenox for DVT prophylaxis -await approval for inpatient rehab Physician Review Additional Text: .
[2018-06-26] MEDS: FLUTICASONE 50MCG NASAL SPRAY NAS SCH ×2 (08:05→22:03)
[2018-06-26] MEDS: CETIRIZINE HCL 5 MG TABLET PO SCH (08:05)
[2018-06-26] MEDS: HYDROCODONE/APAP 5/325 MG TAB PO PRN (08:05)
[2018-06-26] MEDS: ENOXAPARIN 40 MG/0.4 ML SQ SCH (08:06)
--- NOTE | 2018-06-26 09:08 | P.PN ---
Subjective Date of Service: 06/26/18 Primary Care Provider: Dr. Santos Chief Complaint: s/p right hip nikolai Subjective: Improving, Doing well Physical Examination - Vital Signs Temperature: 97.8 F Blood Pressure: 106/64 Pulse: 82 Respirations: 18 Pulse Ox (%): 99 - Physical Exam General: Alert, In no apparent distress, Oriented x3, Cooperative HEENT: Atraumatic Neck: Supple Respiratory: Clear to auscultation bilaterally, Normal air movement Cardiovascular: Normal pulses, Regular rate/rhythm Gastrointestinal: Normal bowel sounds, Soft and benign, Non-distended, No tenderness, No masses, No rebound, No guarding Neurological: Normal speech, Normal strength at 5/5 x4 extr, Normal tone, Normal affect - Studies Medications List Reviewed: Yes Assessment & Plan Discharge Plan: Other (Inpatient rehab) Plan to discharge in: 24 Hours Physician Review Additional Text: Impression: Mechanical fall leading to right subcapital femur fracture status post right hip hemiarthroplasty Bunions, bilateral with hammertoes Pre diabetes Chronic allergic rhinitis Mild Anemia postop Plan: Mechanical fall leading to right subcapital femur fracture status post right hip hemiarthroplasty: Patient has done well post operatively. Patient continues to improve with physical therapy. Physical therapy recommends inpatient rehab. Await approval by insurance. If denied patient desires to go to skilled facility. Patient eventually will go to [place] after the hospitalization/rehab, where her son will take care of her. Anticipate approval to inpatient rehab today. Continue DVT prophylaxis. Continue pain medication as needed. If the patient remains, I will turn the service over to Dr. Maldonado tomorrow. I will go over the plan of care with her. Bunions, bilateral with hammertoes: Patient will need outpatient follow up with podiatry to further address and treat Pre diabetes: Patient reports having recent A1c normal. Blood sugars remained stable. Will monitor closely. Chronic allergic rhinitis: Continue with Zyrtec and Flonase. Mild anemia postop: Overall stable. Will monitor closely. Time Spent Managing Pts Care (In Minutes): 55
[2018-06-27] MEDS: HYDROCODONE/APAP 5/325 MG TAB PO PRN (05:21)
[2018-06-27] MEDS: FLUTICASONE 50MCG NASAL SPRAY NAS SCH ×2 (08:56→21:27)
[2018-06-27] MEDS: CETIRIZINE HCL 5 MG TABLET PO SCH (08:57)
[2018-06-27] MEDS: ENOXAPARIN 40 MG/0.4 ML SQ SCH (08:57)
[2018-06-27 09:24] LABS: Absolute Lymphocytes (CBC) 1.5 K/uL (0.7-4.9); Absolute Monocytes 0.5 K/uL (0.1-1.3); Absolute Neutrophil 4.8 K/uL (1.8-8.0); Basophils % 0.3 % (0-1.3); Hematocrit 29.4 % (36.0-45.0); Lymphocytes % 20.8 % (15.3-44.8); MPV 8.3 fL (7.6-11.3); Monocytes % 6.9 % (3.3-12.3); RBC Red Blood Cell Count 3.18 M/uL (3.86-4.86)
--- NOTE | 2018-06-27 10:58 | P.PN ---
Subjective Date of Service: 06/27/18 Primary Care Provider: Dr. Santos Chief Complaint: s/p right hip nikolai Subjective: Ambulating, Improving, Working w/ PT Pain controlled; ambulating with PT during visit Physical Examination - Vital Signs Temperature: 99.5 F Blood Pressure: 115/60 Pulse: 100 Respirations: 16 Pulse Ox (%): 93 - Physical Exam General: Alert, In no apparent distress Musculoskeletal: Other (LLE: mobilizing well with PT; good kim with gait using walker) - Studies Medications List Reviewed: Yes Assessment And Plan - Plan Anjel is a 72 yo female s/p right hip hemiarthroplasty POD#3 -acute expected postoperative blood loss anemia; continue to monitor H/h -mobilize with PT; WBAT RLE with posterior hip precautions -lovenox for DVT prophylaxis -inpatient rehab denied by insurance; possible d/c to SNF Physician Review Additional Text: Impression: Mechanical fall leading to right subcapital femur fracture status post right hip hemiarthroplasty Bunions, bilateral with hammertoes Pre diabetes Chronic allergic rhinitis Mild Anemia postop Plan: Mechanical fall leading to right subcapital femur fracture status post right hip hemiarthroplasty: Patient has done well post operatively. Patient continues to improve with physical therapy. Physical therapy recommends inpatient rehab. Await approval by insurance. If denied patient desires to go to skilled facility. Patient eventually will go to [place] after the hospitalization/rehab, where her son will take care of her. Anticipate approval to inpatient rehab today. Continue DVT prophylaxis. Continue pain medication as needed. If the patient remains, I will turn the service over to Dr. Maldonado tomorrow. I will go over the plan of care with her. Bunmaite, bilateral with hammertoes: Patient will need outpatient follow up with podiatry to further address and treat Pre diabetes: Patient reports having recent A1c normal. Blood sugars remained stable. Will monitor closely. Chronic allergic rhinitis: Continue with Zyrtec and Flonase. Mild anemia postop: Overall stable. Will monitor closely.
--- NOTE | 2018-06-27 11:30 | P.PN ---
Subjective Date of Service: 06/27/18 Primary Care Provider: Dr. Santos Chief Complaint: s/p right hip nikolai Subjective: No new changes, Ambulating, Doing well Physical Examination - Vital Signs Temperature: 99.5 F Blood Pressure: 115/60 Pulse: 100 Respirations: 16 Pulse Ox (%): 93 - Physical Exam General: Alert, Oriented x3 HEENT: Normocephalic, PERRLA Neck: Supple, JVD not distended Respiratory: Clear to auscultation bilaterally, Normal air movement Cardiovascular: No edema, Normal pulses, Regular rate/rhythm, Normal S1 S2 Gastrointestinal: Normal bowel sounds, Soft and benign, Non-distended Musculoskeletal: No clubbing, No swelling, No tenderness Integumentary: No rashes Neurological: Normal speech, Normal affect - Studies Medications List Reviewed: Yes Assessment And Plan - Plan Impression: Mechanical fall leading to right subcapital femur fracture status post right hip hemiarthroplasty hypokalemia Bunions, bilateral with hammertoes outpatient f/up with podiatry Pre diabetes Chronic allergic rhinitis Mild Anemia postop Plan: pt.ot pain meds pending placment for inpatient rehab vs skilled NH monitor and replace electrolytes Hgb stable ,continue to monitor continue zyretec and flonase for allergic rhinitis dvt ppx Discharge Plan: Correction Plan to discharge in: 48 Hours
[2018-06-27 12:10] LABS: BUN Blood Urea Nitrogen 12 mg/dL (7-18); Bicarbonate 29 mmol/L (21-32); Glucose Level 124 mg/dL (74-106); Sodium Level 140 mmol/L (136-145)
[2018-06-28 06:33] LABS: Absolute Lymphocytes (CBC) 1.3 K/uL (0.7-4.9); Absolute Monocytes 0.5 K/uL (0.1-1.3); Absolute Neutrophil 4.2 K/uL (1.8-8.0); Basophils % 0.1 % (0-1.3); Eosinophils % 3.8 % (0-4.4); Hematocrit 30.2 % (36.0-45.0); Lymphocytes % 20.7 % (15.3-44.8); MPV 8.8 fL (7.6-11.3); Monocytes % 7.5 % (3.3-12.3); RBC Red Blood Cell Count 3.26 M/uL (3.86-4.86)
[2018-06-28 06:45] LABS: BUN Blood Urea Nitrogen 11 mg/dL (7-18); Bicarbonate 27 mmol/L (21-32); Glucose Level 151 mg/dL (74-106); Potassium 3.7 mmol/L (3.5-5.1); Sodium Level 140 mmol/L (136-145)
[2018-06-28] MEDS ORDERED: POTASSIUM CL SA 10 MEQ TAB PO ONE (09:00)
[2018-06-28] MEDS: FLUTICASONE 50MCG NASAL SPRAY NAS SCH ×2 (09:00→21:56)
[2018-06-28] MEDS: CETIRIZINE HCL 5 MG TABLET PO SCH (09:54)
[2018-06-28] MEDS: ENOXAPARIN 40 MG/0.4 ML SQ SCH (09:55)
--- NOTE | 2018-06-28 11:10 | P.PN ---
Subjective Date of Service: 06/28/18 Primary Care Provider: Dr. Santos Chief Complaint: s/p right hip nikolai Subjective: No new changes, Doing well Review of Systems 10-point ROS is otherwise unremarkable Physical Examination - Vital Signs Temperature: 98.1 F Blood Pressure: 109/61 Pulse: 105 Respirations: 18 Pulse Ox (%): 91 - Physical Exam General: Alert, In no apparent distress, Oriented x3 HEENT: Atraumatic, Normocephalic, PERRLA Neck: Supple, JVD not distended Respiratory: Clear to auscultation bilaterally, Normal air movement Cardiovascular: No edema, Normal pulses, Regular rate/rhythm, Normal S1 S2 Gastrointestinal: Normal bowel sounds, Soft and benign, Non-distended - Studies Medications List Reviewed: Yes Assessment And Plan - Plan Impression: Mechanical fall leading to right subcapital femur fracture status post right hip hemiarthroplasty hypokalemia Bunions, bilateral with hammertoes outpatient f/up with podiatry Pre diabetes Chronic allergic rhinitis Mild Anemia postop Plan: pt.ot pain meds pending placment for inpatient rehab vs skilled NH monitor and replace electrolytes Hgb stable ,continue to monitor continue zyretec and flonase for allergic rhinitis dvt ppx Discharge Plan: Snf Plan to discharge in: 24 Hours
[2018-06-29 05:35] LABS: BUN Blood Urea Nitrogen 10 mg/dL (7-18); Bicarbonate 25 mmol/L (21-32); Glucose Level 143 mg/dL (74-106); Potassium 3.6 mmol/L (3.5-5.1); Sodium Level 138 mmol/L (136-145)
[2018-06-29] MEDS ORDERED: POTASSIUM CL SA 10 MEQ TAB PO ONE (09:00)
[2018-06-29] MEDS: CETIRIZINE HCL 5 MG TABLET PO SCH (09:38)
[2018-06-29] MEDS: ENOXAPARIN 40 MG/0.4 ML SQ SCH (09:38)
[2018-06-29] MEDS: TRAMADOL HCL 50 MG TAB PO PRN (09:39)
[2018-06-29] MEDS: FLUTICASONE 50MCG NASAL SPRAY NAS SCH ×2 (09:41→22:28)
--- NOTE | 2018-06-29 10:41 | P.PN ---
Subjective Date of Service: 06/29/18 Primary Care Provider: Dr. Santos Chief Complaint: s/p right hip nikolai Patient seen and examined at bedside with RN. Chart reviewed. Case discussed with for 3rd P dex at this time. Currently patient is awaiting placement. Last night patient had 6 beat run of supraventricular tachycardia was asymptomatic. This morning denies having any chest pain shortness of breath or any other associated symptoms. Working with physical therapy Review of Systems Unremarkable Physical Examination - Vital Signs Temperature: 98.2 F Blood Pressure: 109/62 Pulse: 98 Respirations: 16 Pulse Ox (%): 91 - Physical Exam General: Alert, In no apparent distress HEENT: Atraumatic, PERRLA, EOMI Neck: Supple, JVD not distended Respiratory: Clear to auscultation bilaterally, Normal air movement Cardiovascular: Regular rate/rhythm, Normal S1 S2 Gastrointestinal: Normal bowel sounds, No tenderness Musculoskeletal: No tenderness Integumentary: No rashes Neurological: Normal speech, Normal tone, Normal affect Lymphatics: No axilla or inguinal lymphadenopathy - Studies Medications List Reviewed: Yes Assessment And Plan - Current Problems (Diagnosis) (1) Fall Current Visit: Yes Status: Acute Plan: Mechanical fall -PTOT consulted -fall precautions given Qualifiers: Encounter type: initial encounter Qualified Code(s): W19.XXXA - Unspecified fall, initial encounter (2) Hip fracture, right Current Visit: Yes Status: Acute Plan: Mechanical fall leading to right subcapital femur fracture -status post right hip hemiarthroplasty with orthopedics -currently working with physical therapy -Lovenox for DVT prophylaxis -currently pending placement: Physical therapy recommends inpatient rehab. Patient denied by insurance for inpatient rehab. Currently awaiting [facility] facility placement Qualifiers: Encounter type: initial encounter Fracture type: closed Qualified Code(s) : S72.001A - Fracture of unspecified part of neck of right femur, initial encounter for closed fracture - Plan Pending placement at this time. Discharge Plan: Other Plan to discharge in: 48 Hours - Code Status/Comfort Care Code Status Assessed: Yes Critical Care: No
--- NOTE | 2018-06-29 12:51 | P.PN ---
Subjective Date of Service: 06/29/18 Primary Care Provider: Dr. Santos Chief Complaint: s/p right hip nikolai reports some increased groin pain with ambulation Physical Examination - Vital Signs Temperature: 98.2 F Blood Pressure: 106/69 Pulse: 106 Respirations: 16 Pulse Ox (%): 96 - Physical Exam General: Alert, In no apparent distress Musculoskeletal: Other (RLE: dressing with minimal old sanguionous drainage; NVI distally; minimal pain with IR/ER of the right hip) - Studies Medications List Reviewed: Yes Assessment And Plan - Plan Anjel is a 72 yo female s/p right hip hemiarthroplasty POD#5 -check right hip xray with increased right hip pain with ambulation -mobilize with PT; WBAT RLE with posterior hip precautions -lovenox for DVT prophylaxis -inpatient rehab denied by insurance; possible d/c to SNF Physician Review Additional Text: .
--- NOTE | 2018-06-29 14:44 | RAD REPORT ---
EXAM DESCRIPTION: RAD - Pelvis - 06/29/2018 2:20 pm CLINICAL HISTORY: Right pain COMPARISON: June 24 TECHNIQUE: AP imaging of the pelvis was obtained. FINDINGS: Lower lumbar degenerative changes are present only partially imaged. These match prior jo ging. SI joint and pubic symphysis degenerative changes are present also without clear change. No fracture or acute finding of the bony pelvis. Degenerative change at the left hip joint is similar. Bipolar pr osthesis present on the right. No implant acute finding. No acute right hip joint finding. IMPRESSION: No acute findings. Pelvis exam is not significantly different from June 24.
--- NOTE | 2018-06-29 14:45 | RAD REPORT ---
EXAM DESCRIPTION: RAD - Hip Right 2 View - 06/29/2018 2:20 pm CLINICAL HISTORY: Right hip pain, right bipolar prosthesis COMPARISON: June 24 FINDINGS: Right bipolar prosthesis in place. Acetabular component is similarly positioned. There deg enerative changes along the superior acetabular rim. No subsidence or movement of the femoral compone nt. No radiographic evidence for loosening. No fracture or acute right hip joint finding seen. Skin s taples remain the lateral tissues. No new or worrisome soft tissue finding. Delete select delete winifred ct IMPRESSION: Right bipolar prosthesis is in place unchanged from prior imaging. No acute bone or joint finding.
[2018-06-29] MEDS: TRAMADOL 37.5mg/APAP 325mg PER TAB PO PRN (22:33)
[2018-06-30 05:57] LABS: BUN Blood Urea Nitrogen 10 mg/dL (7-18); Bicarbonate 28 mmol/L (21-32); Glucose Level 125 mg/dL (74-106); Potassium 3.8 mmol/L (3.5-5.1); Sodium Level 141 mmol/L (136-145)
[2018-06-30] MEDS ORDERED: POTASSIUM 25 MEQ EFFERV TAB PO ONE (07:00)
[2018-06-30] MEDS: TRAMADOL 37.5mg/APAP 325mg PER TAB PO PRN (09:05)
[2018-06-30] MEDS: CETIRIZINE HCL 5 MG TABLET PO SCH (09:06)
[2018-06-30] MEDS: ENOXAPARIN 40 MG/0.4 ML SQ SCH (09:06)
[2018-06-30] MEDS: FLUTICASONE 50MCG NASAL SPRAY NAS SCH (09:07)
--- NOTE | 2018-06-30 11:47 | P.DS ---
Admission Date: 06/23/18 Discharge Date: 06/30/18 Primary Care Provider: Dr. Santos Disposition: ROUTINE DISCHARGE Discharge Condition: GOOD Reason for Admission: s/p right hip nikolai Consultations: ORTHOPEDICS Procedures: ORIF - Problems (1) Fall Current Visit: Yes Status: Acute Qualifiers: Encounter type: initial encounter Qualified Code(s): W19.XXXA - Unspecified fall, initial encounter (2) Hip fracture, right Current Visit: Yes Status: Acute Qualifiers: Encounter type: initial encounter Fracture type: closed Qualified Code(s) : S72.001A - Fracture of unspecified part of neck of right femur, initial encounter for closed fracture Brief History of Present Illness: 72-year-old female presented to the emergency room after a mechanical fall. Patient was in a parking lot. She apparently tripped on a curb stop. Patient denied any fever, chills, shortness of breath, chest pain. Patient had immediate pain to the right side. Patient was brought in to the ER for further evaluation. Patient was evaluated the emergency room. CBC and BMP unremarkable. X-ray showed right subcapital femur fracture. Patient was stabilized in the emergency room. She was admitted for further evaluation and treatment. When I saw the patient ER, she appeared comfortable. Patient reports no prior medical problems. She was recently evaluated for pre diabetes. Recent A1c, reported as normal. Patient has been depressed. She is not taking any medication. Patient reports some problems with balance related to her severe bunions bilaterally. Hospital Course: Overall during the hospital stay patient remained stable Patient was initially admitted to the hospital after having a fall at the house of sustaining a right hip fracture. Orthopedic was consulted. Patient had open reduction internal fixation of the right hip fracture. Patient did well postprocedure. Was started on DVT prophylaxis. PT OT was consulted. Initially PT recommended inpatient rehab however insurance denied inpatient rehab and stated that snf facility will be more appropriate. Patient was accepted at [facility] and thus was transferred there for further care. No other complications were noted while patient was here in the hospital. Vital Signs/Physical Exam: Temp Pulse Resp BP Pulse Ox 99.2 F 97 H 24 H 110/62 92 06/30/18 08:00 06/30/18 08:00 06/30/18 08:00 06/30/18 08:00 06/30/18 08:00 General: Alert, In no apparent distress HEENT: Atraumatic, PERRLA, EOMI Neck: Supple, JVD not distended Respiratory: Clear to auscultation bilaterally, Normal air movement Cardiovascular: Regular rate/rhythm, Normal S1 S2 Gastrointestinal: Normal bowel sounds, No tenderness Musculoskeletal: No tenderness Integumentary: No rashes Neurological: Normal speech, Normal tone, Normal affect Lymphatics: No axilla or inguinal lymphadenopathy Laboratory Data at Discharge: WBC 6.3 K/uL (4.3-10.9) 06/28/18 05:16 Hgb 10.5 g/dL (12.0-15.0) L 06/28/18 05:16 Hct 30.2 % (36.0-45.0) L 06/28/18 05:16 Plt Count 243 K/uL (152-406) 06/28/18 05:16 PT 11.7 SECONDS (9.5-12.5) 06/23/18 12:12 INR 0.99 06/23/18 12:12 APTT 30.6 SECONDS (24.3-36.9) 06/23/18 12:12 Sodium 141 mmol/L (136-145) 06/30/18 05:09 Potassium 3.8 mmol/L (3.5-5.1) 06/30/18 05:09 BUN 10 mg/dL (7-18) 06/30/18 05:09 Creatinine 0.42 mg/dL (0.55-1.3) L 06/30/18 05:09 Glucose 125 mg/dL (74-106) H 06/30/18 05:09 Magnesium 1.9 mg/dL (1.8-2.4) 06/26/18 04:25 Home Medications: Enoxaparin Sodium [Lovenox 40 MG INJ*] 40 mg SQ DAILY #30 syr 06/30/18 New Medications: Enoxaparin Sodium [Lovenox 40 MG INJ*] 40 mg SQ DAILY #30 syr Patient Discharge Instructions: Please follow up with orthopedics in about 1-2 days post discharge. Please follow up with PCP in about 1-2 weeks post discharge. New medication. Lovenox for DVT prophylaxis Diet: Regular Activity: Ad cecy
--- NOTE | 2018-06-30 12:11 | P.PN ---
Subjective Date of Service: 06/30/18 Primary Care Provider: Dr. Santos Chief Complaint: s/p right hip nikolai Subjective: Ambulating, Improving, Working w/ PT reports groin pain has improved; no pain at this time Physical Examination - Vital Signs Temperature: 99.2 F Blood Pressure: 110/62 Pulse: 97 Respirations: 24 Pulse Ox (%): 92 - Physical Exam General: Alert, In no apparent distress Musculoskeletal: Other (RLE: NVI distally; dressing with old sanguionous drainage; dressing to be changed today) - Studies Medications List Reviewed: Yes Assessment And Plan - Plan Anjel is a 72 yo female s/p right hip hemiarthroplasty POD#6 -right hip xrays negative for fracture or dislocation; no signs of subsidence -mobilize with PT; WBAT RLE with posterior hip precautions -lovenox for DVT prophylaxis -dressing change prior to d/c -d/c to SNF today Physician Review Additional Text: .
== END 2018-06-30 17:20 | DRG 470 ==
LOC: ER 10:11 → ERHOLD 12:37 → 2ND 14:11
PROVIDERS: ADMIT Family Medicine; ATTEND Family Medicine
PROC: 0SRR0JA Replacement of Right Hip Joint, Femoral Surface with Synthetic Substitute, Uncemented, Open Approach (ICD-10-PCS; principal; 2018-06-24 10:45)
DX: S72.011A Unspecified intracapsular fracture of right femur, initial encounter for closed fracture (principal); I47.1 Supraventricular tachycardia; D62 Acute posthemorrhagic anemia; W01.0XXA Fall on same level from slipping, tripping and stumbling without subsequent striking against object, initial encounter; Y92.481 Parking lot as the place of occurrence of the external cause; E87.6 Hypokalemia; M21.612 Bunion of left foot; M21.611 Bunion of right foot; R73.03 Prediabetes; J30.9 Allergic rhinitis, unspecified; Z88.0 Allergy status to penicillin
CPT/HCPCS: 36415; 51702; 71045; 72170; 80048; 81003; 81015; 82550; 83735; 84439; 84443; 84484; 85014; 85018; 85025; 85610; 85730; 87086; 87088; 88305; 88311; 93005; 96365; 96367; 96374; 96375; 97110; 97116; 97163; 97165; 97530; 99285; J1100; J1650; J2270; J2405; J2704; J3010; J3360

== ENCOUNTER 2018-09-28 03:34 | Emergency (ER) | payer OTHER ==
--- OUTSIDE RECORDS SUMMARY | 2018-09-28 03:36 | XMS REPORT ---
:1945 Author Organization [facility] Address [address] [place] [address] [address] [place] [address] Care Team Providers Name Role Phone Unavailable Unavailable Unavailable Problems This patient has no known problems. Allergies, Adverse Reactions, Alerts This patient has no known allergies or adverse reactions. Medications This patient has no known medications.
[2018-09-28] MEDS ORDERED: TRAMADOL HCL 50 MG TAB ONE (03:55)
--- NOTE | 2018-09-28 05:10 | ER ---
Nurse's Notes [facility] Name: Anjel Stapleton Age: 72 yrs Sex: Female : 1945 Arrival Date: 09/28/2018 Time: 03:35 Bed 6 Private MD: Diagnosis: Thoracic strain Presentation: 09/28 03:45 Presenting complaint: Patient states: pain in L scapula area that radiates to L arm x 1 aa1 month. Pt states she also had a hip replacement several months ago and was using a cane with her L arm. Transition of care: patient was not received from another setting of care. Onset of symptoms was August 2018. Risk Assessment: Do you want to hurt yourself or someone else? Patient reports no desire to harm self or others. Initial Sepsis Screen: Does the patient meet any 2 criteria? No. Patient's initial sepsis screen is negative. Does the patient have a suspected source of infection? No. Patient's initial sepsis screen is negative. Care prior to arrival: None. 03:45 Method Of Arrival: Ambulatory aa1 03:45 Acuity: ELENI 3 aa1 Triage Assessment: 03:52 General: Appears in no apparent distress. comfortable, Behavior is calm, cooperative, aa1 appropriate for age. Historical: - Allergies: 03:52 PENICILLINS; aa1 03:52 Latex, Natural Rubber; aa1 - Home Meds: 03:52 None [Active]; aa1 - PMHx: 03:52 None; aa1 - PSHx: 03:52 ; Appendectomy; partial hip replacment; aa1 - Immunization history:: Adult Immunizations unknown. - Social history:: Smoking status: Patient/guardian denies using tobacco. - Ebola Screening: : No symptoms or risks identified at this time. Screenin:44 Fall Risk Ambulatory Aid- Crutches/Cane/Walker (15 pts). ak1 05:16 Abuse screen: Denies threats or abuse. Denies injuries from another. Nutritional ak1 screening: No deficits noted. Tuberculosis screening: No symptoms or risk factors identified. Assessment: 03:44 General: Appears in no apparent distress. Behavior is calm, cooperative. Pain: ak1 Complains of pain in left scapular area and left subscapular area Pain began "couple of months". Neuro: Level of Consciousness is awake, alert, obeys commands, Oriented to person, place, time, situation, Orthotist/Prosthetist are equal bilaterally Moves all extremities. Gait is pt uses cane on left side due to right partial hip replacement. . Speech is normal, Facial symmetry appears normal. Cardiovascular: Denies chest pain, shortness of breath. Respiratory: No deficits noted. GI: No signs and/or symptoms were reported involving the gastrointestinal system. : No signs and/or symptoms were reported regarding the genitourinary system. EENT: No signs and/or symptoms were reported regarding the EENT system. Derm: No signs and/or symptoms reported regarding the dermatologic system. Musculoskeletal: Range of motion: intact in all extremities, Reports pain in left shoulder. 05:16 Reassessment: Patient appears in no apparent distress at this time. No changes from ak1 previously documented assessment. Patient and/or family updated on plan of care and expected duration. Pain level reassessed. Patient is alert, oriented x 3, equal unlabored respirations, skin warm/dry/pink. Patient states feeling better. Patient states symptoms have improved. Pain: Pain does not radiate. Vital Signs: 03:52 BP 160 / 82; Pulse 80; Resp 18; Temp 97.0; Pulse Ox 98% on R/A; Weight 60.33 kg; Height aa1 5 ft. 2 in. (157.48 cm); Pain 5/10; 04:06 BP 141 / 80; Pulse 64; Resp 16; Pulse Ox 96% on R/A; ak1 05:09 BP 133 / 80; Pulse 63; Resp 16; Temp 97.6; Pulse Ox 95% on R/A; Pain 2/10; ak1 05:17 Pain 2/10; ak1 03:52 Body Mass Index 24.33 (60.33 kg, 157.48 cm) aa1 ED Course: 03:35 Patient arrived in ED. ds1 03:44 Makenzie Morales, HELADIO is Primary Nurse. ak1 03:44 Patient has correct armband on for positive identification. Bed in low position. Call ak1 light in reach. Side rails up X2. Adult w/ patient. Pulse ox on. NIBP on. 03:44 Patient maintains SpO2 saturation greater than 95% on room air. ak1 03:50 Triage completed. aa1 03:51 John Meza MD is Attending Physician. tw4 03:52 Arm band placed on right wrist. aa1 04:37 Chest Single View In Process Unspecified. EDMS 04:37 Shoulder Left 2 View In Process Unspecified. EDMS 05:16 No provider procedures requiring assistance completed. Patient did not have IV access ak1 during this emergency room visit. Administered Medications: 03:57 Drug: traMADol 50 mg Route: PO; ea 05:17 Follow up: Pain 2/10 Adult; Response: No adverse reaction; Pain is decreased; RASS: ak1 Alert and Calm (0) Outcome: 05:09 Discharge ordered by . tw4 05:16 Discharged to home ambulatory, with family. ak1 05:16 Condition: improved 05:16 Discharge instructions given to patient, family, Instructed on discharge instructions, follow up and referral plans. no drinking with medication, no driving heavy equipment, medication usage, Demonstrated understanding of instructions, follow-up care, medications, Prescriptions given X 1. 05:16 Patient left the ED. ak1 Signatures: Dispatcher [employer] EDMS Pam Sol RN RN aa1 Estrella Zaragoza ds1 Makenzie Morales RN RN ak1 Agnieszka Tinsley RN RN ea Wadley, Terrence, MD MD tw4
--- NOTE | 2018-09-28 05:10 | EDPHYS ---
Physician Documentation [facility] Name: Anjel Stapleton Age: 72 yrs Sex: Female : 1945 Arrival Date: 09/28/2018 Time: 03:35 Bed 6 Private MD: ED Physician John Meza HPI: 09/28 05:13 This 72 yrs old Female presents to ER via Ambulatory with complaints of tw4 Shoulder Pain. 05:13 The patient or guardian complains of pain, that is chronic. left shoulder. Context: The tw4 problem was sustained at home. Onset: The symptoms/episode began/occurred 1 month(s) ago. Modifying factors: the symptoms are alleviated by nothing. The symptoms are aggravated by nothing. Associated signs and symptoms: Pertinent positives: neck pain, Pertinent negatives: chest pain, diaphoresis, dyspnea, shortness of breath, tingling. Severity of symptoms: At their worst the symptoms were mild, in the emergency department the symptoms are unchanged. The patient has not experienced similar symptoms in the past. Historical: - Allergies: 03:52 PENICILLINS; aa1 03:52 Latex, Natural Rubber; aa1 - Home Meds: 03:52 None [Active]; aa1 - PMHx: 03:52 None; aa1 - PSHx: 03:52 ; Appendectomy; partial hip replacment; aa1 - Immunization history:: Adult Immunizations unknown. - Social history:: Smoking status: Patient/guardian denies using tobacco. - Ebola Screening: : No symptoms or risks identified at this time. ROS: 05:13 Constitutional: Negative for fever, chills, and weight loss, Eyes: Negative for injury, tw4 pain, redness, and discharge, Cardiovascular: Negative for chest pain, palpitations, and edema, Respiratory: Negative for shortness of breath, cough, wheezing, and pleuritic chest pain, Abdomen/GI: Negative for abdominal pain, nausea, vomiting, diarrhea, and constipation, Back: Negative for injury and pain, MS/Extremity: Negative for injury and deformity. Exam: 05:13 Constitutional: This is a well developed, well nourished patient who is awake, alert, tw4 and in no acute distress. Head/Face: Normocephalic, atraumatic. Chest/axilla: Normal chest wall appearance and motion. Nontender with no deformity. No lesions are appreciated. Cardiovascular: Regular rate and rhythm with a normal S1 and S2. No gallops, murmurs, or rubs. Normal PMI, no JVD. No pulse deficits. Respiratory: Lungs have equal breath sounds bilaterally, clear to auscultation and percussion. No rales, rhonchi or wheezes noted. No increased work of breathing, no retractions or nasal flaring. Abdomen/GI: Soft, non-tender, with normal bowel sounds. No distension or tympany. No guarding or rebound. No evidence of tenderness throughout. 05:13 Back: pain, that is very mild, of the left scapular area. 05:13 Musculoskeletal/extremity: Extremities: noted in the anterior aspect of left shoulder: pain. Vital Signs: 03:52 BP 160 / 82; Pulse 80; Resp 18; Temp 97.0; Pulse Ox 98% on R/A; Weight 60.33 kg; Height aa1 5 ft. 2 in. (157.48 cm); Pain 5/10; 04:06 BP 141 / 80; Pulse 64; Resp 16; Pulse Ox 96% on R/A; ak1 05:09 BP 133 / 80; Pulse 63; Resp 16; Temp 97.6; Pulse Ox 95% on R/A; Pain 2/10; ak1 05:17 Pain 2/10; ak1 03:52 Body Mass Index 24.33 (60.33 kg, 157.48 cm) aa1 MDM: 03:51 Patient medically screened. tw4 05:13 Differential diagnosis: DJD, tendonitis. Data reviewed: vital signs, nurses notes. Data tw4 interpreted: Pulse oximetry: Interpretation: normal. Counseling: I had a detailed discussion with the patient and/or guardian regarding: the historical points, exam findings, and any diagnostic results supporting the discharge/admit diagnosis, radiology results. Medication response: tramadol. Response to treatment: the patient's symptoms have resolved after treatment, and as a result, I will discharge patient. Special discussion: I discussed with the patient/guardian in detail that at this point there is no indication for admission to the hospital. It is understood, however, that if the symptoms persist or worsen the patient needs to return immediately for re-evaluation. 09/28 04:13 Order name: Chest Single View EDMS 09/28 04:14 Order name: Shoulder Left 2 View EDTN Administered Medications: 03:57 Drug: traMADol 50 mg Route: PO; ea 05:17 Follow up: Pain 2/10 Adult; Response: No adverse reaction; Pain is decreased; RASS: ak1 Alert and Calm (0) Disposition: 09/28/18 05:09 Discharged to Home. Impression: Thoracic strain. - Condition is Stable. - Discharge Instructions: Thoracic Strain. - Prescriptions for Tramadol 50 mg Oral Tablet - take 1 tablet by ORAL route every 8 hours as needed; 12 tablet. - Medication Reconciliation Form, Thank You Letter, Antibiotic Education, Prescription Opioid Use form. - Follow up: Private Physician; When: Upon discharge from the Emergency Department; Reason: If symptoms return, Recheck today's complaints, Continuance of care. - Problem is new. - Symptoms have improved. Signatures: Dispatcher [employer] EDTN Pam Sol RN RN aa1 Makenzie Morales RN RN ak1 Agnieszka Tinsley RN John Arguelles ea, MD MD tw4 Corrections: (The following items were deleted from the chart) 05:16 05:09 09/28/2018 05:09 Discharged to Home. Impression: Thoracic strain. Condition is ak1 Stable. Forms are Medication Reconciliation Form, Thank You Letter, Antibiotic Education, Prescription Opioid Use. Follow up: Private Physician; When: Upon discharge from the Emergency Department; Reason: If symptoms return, Recheck today's complaints, Continuance of care. Problem is new. Symptoms have improved. tw4
--- NOTE | 2018-09-28 10:15 | RAD REPORT ---
EXAM DESCRIPTION: RAD - Shoulder Left 2 View - 09/28/2018 4:37 am CLINICAL HISTORY: Left scapula pain, left shoulder pain COMPARISON: None. TECHNIQUE: Internal and external rotation views of the left shoulder were obtained. FINDINGS: There is no fracture or dislocation. Advanced degenerative changes are present at the AC j oint without inferiorly directed spurring. Acromial humeral joint space is narrowed slightly without abnormal soft tissue calcifications. Spurring changes are present in the clavicles and coracoid proce ss at the origin and insertion of the coracoclavicular ligaments. No rib or lung parenchymal abnormality in the upper left chest IMPRESSION: Negative two-view left shoulder examination for acute finding. Shoulder joint degenerative change as detailed.
--- NOTE | 2018-09-28 10:19 | RAD REPORT ---
EXAM DESCRIPTION: RAD - Chest Single View - 09/28/2018 4:37 am CLINICAL HISTORY: Back pain, chest pain COMPARISON: June 23, 2018 TECHNIQUE: AP portable chest image was obtained 0425 hours . FINDINGS: No focal lung parenchymal process. Interstitial pattern is mildly prominent but unchanged. Mediastinal and hilar regions also stable. Heart and vasculature are normal. No measurable pleural e ffusion and no pneumothorax. No acute bony abnormality seen. No acute aortic findings suspected. IMPRESSION: No acute cardiopulmonary process. No significant interval change.
== END 2018-09-28 05:16 | disposition home or self-care (01) ==
LOC: ER 03:34
DX: S29.012A Strain of muscle and tendon of back wall of thorax, initial encounter (principal); X58.XXXA Exposure to other specified factors, initial encounter; Y93.9 Activity, unspecified; Y92.009 Unspecified place in unspecified non-institutional (private) residence as the place of occurrence of the external cause; Z88.0 Allergy status to penicillin; Z91.040 Latex allergy status; Z91.048 Other nonmedicinal substance allergy status
CPT/HCPCS: 71045; 99284